=== PATIENT | female | born 1970 | race Caucasian/White ===

== ENCOUNTER 2019-01-28 08:20 | Day surgery (SDC) | payer OTHER ==
[~2019-01-28 08:20] MED LIST: CEFAZOLIN 1 GM/50 ML (PMX) 50 ML IVPB; SOD CHLORIDE 0.9% 1,000 ML IV
[2019-01-28] MEDS ORDERED: BUPIVACAINE 0.5% (SDV) 30 ML INJ (09:12)
[2019-01-28] MEDS: LIDOCAINE 1% (MPF) 30 ML INJ (09:55)
== END 2019-01-28 11:26 | disposition home or self-care (01) ==
LOC: SDS 08:20
DX: D17.1 Benign lipomatous neoplasm of skin and subcutaneous tissue of trunk (principal); E78.5 Hyperlipidemia, unspecified
CPT/HCPCS: 21555